=== PATIENT | male | born 1980 | race African-American/Black ===

== ENCOUNTER 2017-03-07 15:22 | Emergency (ER) | payer SELFPAY ==
[~2017-03-07] VITALS: Ht 182.9 cm; Wt 73.3 kg
[2017-03-07 15:56] LABS: BASOPHIL COUNT 0.1 K/uL (0-0.1); EOSINOPHIL (%) 0 % (0-5); IMMATURE GRANULOCYTE (%) 0.7 % (0.0-0.7); IMMATURE GRANULOCYTE COUNT 0.2 K/uL; INSTRUMENT ABS NEUTROPHIL CT 22.5 K/uL; LYMPHOCYTE COUNT 0.7 K/uL (1.0-2.8); MCH 31.6 PG (29.0-34.0); MCHC 33.1 G/DL (30.0-36.0); MCV 95.5 FL (86-99); MEAN PLAT.VOLUME 9.4 uM^3 (9.0-12.4); MONOCYTE (%) 4.9 % (3-12); MONOCYTE COUNT 1.2 K/uL (0-0.8); NEUTROPHIL (%) 91.4 % (45-76); NEUTROPHIL COUNT 22.5 K/uL (1.8-6.4); PLATELET COUNT 182 K/uL (156-360); RBC DIS.WIDTH-CV 12.3 % (11.8-14.6); RBC DIS.WIDTH-SD 43.9 % (39-53); RED BLOOD COUNT 4.71 M/uL (4.00-5.50); WHITE BLOOD COUNT 24.7 K/uL (4.1-10.2)
[2017-03-07 16:06] LABS: CHLORIDE 106 mEq/L (99-109); SODIUM 142 mEq/L (136-147)
[2017-03-07 16:08] LABS: GLUCOSE 99 mg/dL (70-99)
[2017-03-07 16:09] LABS: ANION GAP 12 MEQ/L (2-14)
[2017-03-07 16:10] LABS: TOTAL BILIRUBIN 0.7 mg/dL (0.0-1.0)
[2017-03-07 16:12] LABS: ALKALINE PHOSPHATASE 63 IU/L (3-129); GFR ESTIMATE (CALCULATED) > 59 mL/min/
[2017-03-07 16:13] LABS: UREA NITROGEN (BUN) 11 mg/dL (9-23)
[2017-03-07 16:15] LABS: LIPASE 7 U/L (1.0-51.0)
[2017-03-07] MEDS ORDERED: ZOFRAN ODT4 MG PO (17:35)
[2017-03-07 17:43] VITALS: BP 141/65
== END 2017-03-07 17:50 | disposition home or self-care (01) ==
LOC: EME 15:22
PROVIDERS: Physician Assistant Medical
DX: R11.2 Nausea with vomiting, unspecified (principal); E86.0 Dehydration; F17.210 Nicotine dependence, cigarettes, uncomplicated
CPT/HCPCS: 80053; 83690; 83735; 85025; 99281; 99285; J2405; J7030